=== PATIENT | female | born 1955 | race African-American/Black ===

== ENCOUNTER 2017-12-16 09:15 | Emergency (ER) | payer BC, OTHER ==
[~2017-12-16] VITALS: Ht 165.1 cm; Wt 113.4 kg
[~2017-12-16 09:15] MED LIST: CLONIDINE0.1 PO; LISINOPRIL; PREDNISONE 20 M20 MG PO; VERAPAMIL
[2017-12-16] MEDS ORDERED: COZAAR 25 MG TA25 M2 PO (09:26)
[2017-12-16] MEDS ORDERED: VERAPAMIL ER300 MG PO (09:27)
[2017-12-16 10:13] VITALS: BP 146/88
== END 2017-12-16 10:22 | disposition home or self-care (01) ==
LOC: ER 09:15
DX: S61.411A Laceration without foreign body of right hand, initial encounter (principal); I10 Essential (primary) hypertension; Z90.710 Acquired absence of both cervix and uterus; W01.10XA Fall on same level from slipping, tripping and stumbling with subsequent striking against unspecified object, initial encounter; Y93.89 Activity, other specified; Y92.89 Other specified places as the place of occurrence of the external cause; Y99.8 Other external cause status

== ENCOUNTER 2019-04-05 17:37 | Emergency (ER) | payer OTHER ==
[~2019-04-05] VITALS: Ht 165.1 cm; Wt 124.7 kg
[~2019-04-05 17:37] MED LIST changes: +COZAAR 25 MG TA25 M2 PO; +VERAPAMIL ER300 MG PO
[2019-04-05] MEDS ORDERED: IRBESARTAN-HCT1 EAC1 PO (17:43)
[2019-04-05] MEDS ORDERED: NAPROXEN375 MG PO (19:41)
[2019-04-05] MEDS ORDERED: METHOCARBAMOL500 M2 PO (19:41)
[2019-04-05 20:05] VITALS: BP 153/84
--- NOTE | 2019-04-07 17:13 | EKG ---
[address] [address] ELECTROCARDIOGRAM REPORT Name: BEBE CAMEJO [id number] Admission: 04/05/19 Attend Phys: Discharge: 04/05/19 Date of : 51 Report #: [id number] THIS REPORT FOR: //name// [facility] ED Test Date: 2019-04-05 Test Time: 19:42:09 Pat Name: BEBE CAMEJO Department: Room: Gender: F [employer] Driver: CHELI : 1955 Requested By: Lance Livingston Order Number: [id number] MD: Ji Tineo Measurements Intervals [place] Rate: 72 P: 46 [place]: 169 QRS: -7 QRSD: 96 T: 14 QT: 391 QTc: 428 Interpretive Statements Sinus rhythm Left ventricular hypertrophy No previous ECG available for comparison Electronically Signed On 04-07-2019 17:12:24 [employer] SAL[employer]PRESENTATIVE by Ji Tineo [email or web address] <ELECTRONICALLY SIGNED> By: Ji Tineo MD 04/07/19 171 41 41 Ji Tineo MD /PERFECTO
== END 2019-04-05 20:05 | disposition home or self-care (01) ==
LOC: ER 17:37
DX: M43.6 Torticollis (principal); I10 Essential (primary) hypertension; Z88.8 Allergy status to other drugs, medicaments and biological substances